=== PATIENT | male | born 1940 | race Caucasian/White ===

== ENCOUNTER 2016-08-06 13:35 | Emergency (ER) | payer OTHER ==
[~2016-08-06] VITALS: Ht 172.7 cm; Wt 72.6 kg
[2016-08-06] MEDS ORDERED: HYDROCODONE/APAP 5/325MG 1 EACH TABLET PO ONE (15:00)
[2016-08-06] MEDS ORDERED: IBUPROFEN 600 MG TABLET PO ONE ×2 (15:00→15:08)
[2016-08-06] MEDS ORDERED: HYDROCODONE/APAP 5/325MG 1 EACH TABLET ONE (15:08)
[2016-08-06 15:36] VITALS: BP 145/79
== END 2016-08-06 15:37 | disposition home or self-care (01) ==
LOC: ER 14:48
DX: S29.012A Strain of muscle and tendon of back wall of thorax, initial encounter (principal); I10 Essential (primary) hypertension; N40.0 Benign prostatic hyperplasia without lower urinary tract symptoms; Z85.9 Personal history of malignant neoplasm, unspecified; X58.XXXA Exposure to other specified factors, initial encounter; Y93.9 Activity, unspecified; Y92.9 Unspecified place or not applicable; Y99.9 Unspecified external cause status
CPT/HCPCS: 99283; A4606; Z7610

== ENCOUNTER 2016-08-08 17:44 | Emergency (ER) | payer OTHER ==
[~2016-08-08] VITALS: Ht 167.6 cm; Wt 68.0 kg
[2016-08-08] MEDS ORDERED: KETOROLAC TROMETHAMINE INJ 30 MG/ML VIAL ONE (18:12)
[2016-08-08] MEDS ORDERED: DIAZEPAM 10 MG TABLET ONE (18:12)
[2016-08-08] MEDS ORDERED: DIAZEPAM 10 MG TABLET PO ONE (18:30)
[2016-08-08] MEDS ORDERED: KETOROLAC TROMETHAMINE INJ 30 MG/ML VIAL IM ONE (18:30)
[2016-08-08 19:14] VITALS: BP 115/66
[2016-08-08] MEDS ORDERED: HYDROCODONE/APAP 5/325MG 1 EACH TABLET ONE (19:55)
[2016-08-08] MEDS ORDERED: HYDROCODONE/APAP 5/325MG 1 EACH TABLET PO ONE (20:00)
== END 2016-08-08 19:59 | disposition home or self-care (01) ==
LOC: ER 17:45
DX: S29.012A Strain of muscle and tendon of back wall of thorax, initial encounter (principal); I10 Essential (primary) hypertension; N40.0 Benign prostatic hyperplasia without lower urinary tract symptoms; G89.29 Other chronic pain; M54.9 Dorsalgia, unspecified; X50.1XXA Overexertion from prolonged static or awkward postures, initial encounter; Y93.89 Activity, other specified; Y92.89 Other specified places as the place of occurrence of the external cause; Y99.8 Other external cause status
CPT/HCPCS: 72070; 96372; 99284; A4606; J1885; Z7610

== ENCOUNTER 2017-04-22 11:26 | Inpatient (IN) | payer OTHER ==
[~2017-04-22] VITALS: Ht 162.6 cm; Wt 74.8 kg
--- NOTE | 2017-04-22 11:40 | NUR ---
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 IV ACCESS ELECTROPLATING LABORER. PT NOTED ANXIOUS. MD AT BS FOR EVAL. VSS. SAFETY AND COMFORT MEASURES PROVIDED. WILL MONITOR.
[2017-04-22] MEDS ORDERED: ONDANSETRON HCL/PF 4 MG/2 ML VIAL ONE (11:48)
[2017-04-22] MEDS ORDERED: ASPIRIN 81 MG TAB.CHEW ONE (11:49)
[2017-04-22] MEDS ORDERED: MORPHINE SULFATE INJ 4 MG/ML DISP.SYRIN ONE (11:49)
[2017-04-22] MEDS ORDERED: MORPHINE SULFATE INJ 2 MG/ML DISP.SYRIN IV ONE (12:00)
[2017-04-22] MEDS ORDERED: ASPIRIN 81 MG TAB.CHEW PO ONE (12:00)
[2017-04-22] MEDS ORDERED: ONDANSETRON HCL/PF 4 MG/2 ML VIAL IVP ONE (12:00)
[2017-04-22] MEDS ORDERED: IV NS 0.9% 500 ML BAG IV ONE (12:00)
--- NOTE | 2017-04-22 12:00 | NUR ---
PT MEDICATED ORDERED. STATE ASSESSED PROPERTIES DIRECTOR AT FOR BLOOD DRAW.
[2017-04-22 12:04] LABS: BASOPHILS % (AUTO) 0.4 % (0.0-2.0); EOSINOPHILS # (AUTO) 0.3 /CMM (0.0-0.7); EOSINOPHILS % (AUTO) 4.4 % (0.0-6.0); HEMATOCRIT 41 % (39-51); HEMOGLOBIN 13.9 g/dL (13.5-17.5); LYMPHOCYTES % (AUTO) 25.5 % (20.0-44.0); MEAN CORPUSCULAR HEMOGLOBIN 32 PG (26.0-33.0); MEAN CORPUSCULAR HGB CONC 34 g/dl (31.0-36.0); MEAN CORPUSCULAR VOLUME 94 fL (80-96); MONOCYTES # (AUTO) 0.4 /CMM (0.1-1.30); MONOCYTES % (AUTO) 5.1 % (2.0-12.0); NEUTROPHILS # (AUTO) 5.1 /CMM (1.8-8.9); NEUTROPHILS % (AUTO) 64.6 % (43.0-81.0); PLATELET COUNT (AUTO) 282 /CMM (150-450); RED BLOOD CELL COUNT(AUTO) 4.42 MIL/uL (4.5-6.0); WHITE BLOOD COUNT (AUTO) 7.8 K/uL (4.3-11.0)
--- NOTE | 2017-04-22 12:11 | NUR ---
CARLOS AT BS.
[2017-04-22 12:21] LABS: CALCIUM, SERUM 9.2 mg/dL (8.5-10.1); CARBON DIOXIDE 23 mmol/L (21-32); CHLORIDE 104 mmol/L (98-107); CREATININE 1.5 mg/dL (0.6-1.3); GLUCOSE 158 mg/dL (74-106); POTASSIUM 4.1 mmol/L (3.5-5.1); SODIUM SERUM 138 mmol/L (136-145); UREA NITROGEN, BLOOD 21 mg/dL (7-18)
[2017-04-22 12:26] LABS: ALANINE AMINOTRANSFERASE 17 U/L (12-78); ALBUMIN 3.4 g/dL (3.4-5.0); ALKALINE PHOSPHATASE 92 U/L (46-116); ASPARTATE AMINOTRANSFERASE 19 U/L (15-37); BILIRUBIN,DIRECT 0.1 mg/dL (0.0-0.2); BILIRUBIN,TOTAL 0.5 mg/dL (0.2-1.0); LIPASE 138 U/L (73-393); TOTAL PROTEIN, SERUM 7.3 g/dL (6.4-8.2)
[2017-04-22 12:27] LABS: TROPONIN I 0.053 ng/mL (0.00-0.056)
[2017-04-22 14:04] LABS: APPEARANCE,URINE Clear (CLEAR); BILIRUBIN,URINE Negative (NEGATIVE); BLOOD, URINE Negative Ery/uL (NEGATIVE); COLOR,URINE Yellow (YELLOW); KETONES,URINE Negative (NEGATIVE); LEUKOCYTE ESTERASE ,URINE Negative (NEGATIVE); NITRITE, URINE Negative (NEGATIVE); PH,URINE 6.5 (5.0-8.0); PROTEIN,URINE Negative (NEGATIVE); UGLUCOSE Negative (NEGATIVE); UROBILINOGEN,URINE 0.2 EU/dL (0.2)
--- NOTE | 2017-04-22 14:10 | NUR ---
REPORT GIVEN TO BARRY HUMMEL FOR TELE ROOM 312-2
--- NOTE | 2017-04-22 14:21 | NUR ---
DR. SALAZAR AT BS.
[2017-04-22] MEDS ORDERED: VERA180T7 PO (14:22)
[2017-04-22] MEDS ORDERED: TAMS0.4C34 PO (14:22)
[2017-04-22] MEDS ORDERED: ASPI-991 PO (14:22)
[2017-04-22] MEDS ORDERED: PROP20TA7 PO (14:22)
[2017-04-22] MEDS ORDERED: DUTA0.5C PO (14:22)
--- NOTE | 2017-04-22 14:50 | NUR ---
CYLINDER PRESS OPERATOR APPRENTICE ADMITTING NOTE PATIENT ARRIVED TO THE UNIT VIA GURNEY ACCOMPANIED BY ER NURSE, SALES REPRESENTATIVE GAS SERVICE AND THE SON JULITO. PATIENT IS AMBULATORY, A/O X3, FORGETFUL OF SPECIFIC DATES, TAJIK SPEAKING, BUT UNDERSTANDS SIMPLE CONTENT IN [place]. REPORTS MILD ACHE IN CHEST REGION. ASSISTED TO BED SAFELY. BED IS LOCKED IN LOWEST POSITION, SIDE RAILS UP X2. PATIENT IN HIGH CASTANEDA'S POSITION. CALL LIGHT WITHIN REACH. PATIENT EDUCATED TO USE THE CALL LIGHT WHEN CALLING FOR ASSISTANCE VIA TEACH BACK METHOD AND VERBALIZED FULL UNDERSTANDING OF THE TEACHING. DR. SALAZAR IS AWARE PATIENT IS ON THE UNIT. AWAITING FOR THE ORDERS.
[2017-04-22 14:55] VITALS: BP 142/66
[2017-04-22] MEDS ORDERED: MORPHINE SULFATE INJ 2 MG/ML DISP.SYRIN IV PRN (15:30)
[2017-04-22] MEDS ORDERED: NITROGLYCERIN 0.4 MG/TAB BOTTLE SL PRN (15:30)
[2017-04-22] MEDS ORDERED: ONDANSETRON HCL/PF 4 MG/2 ML VIAL IVP PRN (15:30)
--- NOTE | 2017-04-22 15:51 | NUR ---
LEGAL EXECUTIVE ASSISTANT NOTE DAISY FROM [facility] CALLED REPORTED CRITICAL LAB VALUE OF TROPONIN 1.182. WILL INFORM THE MD.
--- NOTE | 2017-04-22 15:59 | NUR ---
SALES ENGAGEMENT MANAGER NOTE TELEPHONE REPORT GIVEN TO DR. SALAZAR ON CRITICAL LAB VALUE (TROPONIN 1.182). TELEPHONE ORDER OBTAINED TO START THE PATIENT ON HEPARIN DRIP
[2017-04-22 16:00] VITALS: BP 146/91
[2017-04-22] MEDS ORDERED: FEE PK DOSING 1 MIN EA MC ONE (16:49)
[2017-04-22] MEDS ORDERED: METOPROLOL TARTRATE 25 MG TABLET PO SCH (17:00)
[2017-04-22] MEDS ORDERED: HEPARIN SODIUM, PORCINE 5000 UNITS/1 ML VIAL SQ ONE (17:30)
[2017-04-22] MEDS: ACETAMINOPHEN 325 MG TABLET PO PRN (17:44)
[2017-04-22 18:00] VITALS: BP 166/84
[2017-04-22] MEDS ORDERED: IV NS 0.9% 1,000 ML BAG IV PRN (18:00)
--- NOTE | 2017-04-22 18:00 | NUR ---
TOWBOAT OPERATOR NOTE PATIENT IS REFUSING THE MEDICATIONS. ONLY AGREED TO TAKE PRESCRIBED TYLENOL FOR REPORTED FLANK PAIN.
--- NOTE | 2017-04-22 18:10 | NUR ---
CAMPUS COORDINATOR NOTE PATIENT IS REFUSING BLOOD DRAW. RN SPOKE TO THE PATIENT EXPLAINED THE NEED FOR BLOOD DRAW AND ITS PURPOSE. PATIENT AGREED TO BLOOD DRAW STATED "THIS IS THE LAST ONE I AM AGREEING TO".
--- NOTE | 2017-04-22 18:25 | NUR ---
APPLICATION CONSULTANT NOTE patient is refusing Heparin. Dr Tarango notified. per call the son Mina and explain the situation. Called the son's cell phone to discuss. no answer. Will call back.
--- NOTE | 2017-04-22 18:28 | NUR ---
GRANULATING BLENDER NOTE SPOKE TO PATIENT'S SON JULITO. EXPLAINED THE IMPORTANCE OF HEPARIN ADMINISTRATION. ASKED THE SON TO SPEAK TO THE FATHER. THE SON STATED HE WILL COME TO THE HOSPITAL TO SPEAK TO THE PATIENT. PATIENT IS STILL REFUSING THE HEPARIN ADMINISTRATION.
[2017-04-22 18:35] LABS: INR 0.93 (0.87-1.13); PROTHROMBIN TIME 9.7 SECS (9.5-12.7)
--- NOTE | 2017-04-22 18:50 | NUR ---
VISUAL EFFECTS EDITOR NOTE PATIENT DISLODGED THE IV. IV CATHETER REMOVED, OCCLUSIVE DRESSING APPLIED. TWO NEW IV CATHETER INSERTED. PATIENT TOLERATED THE PROCEDURE WELL.
--- NOTE | 2017-04-22 19:01 | NUR ---
CARBON PAPER MACHINE OPERATOR NOTE PATIENT'S SON AT THE BEDSIDE. PATIENT AGREED TO HEPARIN
--- NOTE | 2017-04-22 19:18 | NUR ---
CRYPTOLOGIC LINGUIST NOTE HEPARIN ORDER IN EMAR IS PLACED SUBQ INSTEAD OF IV. CALLED PHARMACY TO VERIFY. PHARMACY IS CLOSED. CALLING THE PHYSICIAN TO ASK IF GIVING HEPATIN SUB Q IS ACCEPTABLE.
--- NOTE | 2017-04-22 19:30 | NUR ---
TAFFY CANDY MAKER NOTE RECEIVED PATIENT AWAKE AND ALERT IN BED. PATIENT'S SON AT THE BEDSIDE. PATIENT IS CALM AN COOPERATIVE. NO DISTRESS NOTED. PATIENT DENIES ANY PAIN. BED IS LOCKED, IN LOWEST POSITION, SIDE RAILS UP X2, BED ALARM ON. RIGHT FOREARM IV RUNNING HEPARIN AT 22 ML/HR. LEFT WRIST IC INFUSING NORMAL SALINE AT 75ML/HR. CALL LIGHT WITHIN REACH.
--- NOTE | 2017-04-22 19:35 | NUR ---
COMMUNICATIONS STRATEGIST NOTE SPOKE TO DR. BAILEY THE DIGITAL DEVELOPER MD. PER DR. BAILEY DO NOT ADMINISTER THE SUBQ BOLUS. SKIP THE BOLUS AND INITIATE THE HEPARIN DRIP.
[2017-04-22] MEDS: IV NS 0.9% 1,000 ML IV PRN (19:51)
[2017-04-22 20:00] VITALS: BP 166/84
[2017-04-22] MEDS: HEPARIN INFUSION/D5W 500 ML IV PRN (20:00)
--- NOTE | 2017-04-22 20:00 | NUR ---
PILOT CONTROL OPERATOR CLOSING NOTE REPORT GIVEN TO JOAN WOMEN'S SOCCER COACH RN. PATIENT FINALLY AGREED TO HEPARIN AND IV SALINE ADMINISTRATION. PATIENT'S SON AT THE BEDSIDE. PATIENT IS CURRENTLY CALM AN COOPERATIVE. IN BED, BED IS LOCKED, IN LOWEST POSITION, SIDE RAILS UP X2, BED ALARM ON. RIGHT FOREARM IV RUNNING HEPARIN AT 22 ML/HR. LEFT WRIST IC INFUSING NORMAL SALINE AT 75ML/HR. PATIENT DENIES PAIN DISCOMFORT AT THIS TIME. ALL NEEDS ARE MET. CALL LIGHT WITHIN REACH. ENDORSED TO THE WOMEN'S SOCCER COACH NURSE FOR CAITLIN.
[2017-04-22 22:00] VITALS: BP 166/84
[2017-04-22] MEDS ORDERED: LORAZEPAM INJ 2 MG/ML VIAL ONE (22:17)
[2017-04-22] MEDS: LORAZEPAM INJ 2 MG/ML VIAL IV PRN (22:23)
--- NOTE | 2017-04-22 22:30 | NUR ---
SYNTHETIC FILAMENT EXTRUDER NOTE PATIENT AGITATED, AND ATTEMPTING TO PULL OUT IV'S. VERBALIZING THAT HE IS LEAVING THE HOSPITAL. SON AT BEDSIDE. ATTEMPTING TO CALM HIM DOWN. CONTINUES TO BE AGITATED. DR. BAILEY NOTIFIED. NEW ORDERS RECEIVED FOR LORAZEPAM 1MG Q6H PRN PO FOR AGITATION. ORDER CARRIED OUT. MEDICATION ADMINISTERED ORDERED. WILL CONTINUE TO MONITOR.
--- NOTE | 2017-04-22 23:15 | NUR ---
BOBJ DEVELOPER NOTE TROPONIN 2.590. DR. BAILEY NOTIFIED. NO NEW ORDERS GIVEN. WILL CONTINUE TO MONITOR.
--- NOTE | 2017-04-22 23:30 | NUR ---
REGISTRATION REP NOTE PATIENT SLEEPING AT THIS TIME. VITAL SIGNS STABLE. SON AT BEDSIDE. WILL CONTINUE TO MONITOR.
[2017-04-23] VITALS (12 sets, daily range): BP systolic 96–171; BP diastolic 52–107
--- NOTE | 2017-04-23 02:55 | NUR ---
OPTICAL GOODS DRILL OPERATOR NOTE PTT LEVEL 42. INCREASED HEPARIN DRIP TO 1,275 UNITS/HR, 26ML/HR PER PROTOCOL. REPEAT PTT @ 0800.
[2017-04-23] MEDS ORDERED: LORAZEPAM INJ 2 MG/ML VIAL ONE (04:24)
[2017-04-23] MEDS: LORAZEPAM INJ 2 MG/ML VIAL IV PRN ×2 (04:27→15:43)
--- NOTE | 2017-04-23 06:22 | NUR ---
SENIOR PARTNER NOTE PATIENT STABLE. TELE SR 80. SLEEPING AT THIS TIME. NO DISCOMFORT NOTED. SON AT BEDSIDE. HEPARIN DRIP RUNNING @26ML/HR. ALL NEEDS MET AND ATTENDED TO. WILL ENDORSE TO DAY SHIFT FOR CAITLIN.
[2017-04-23 07:49] LABS: BASOPHILS # (AUTO) 0.1 /CMM (0.0-0.2); BASOPHILS % (AUTO) 0.7 % (0.0-2.0); EOSINOPHILS # (AUTO) 0.5 /CMM (0.0-0.7); EOSINOPHILS % (AUTO) 5.3 % (0.0-6.0); HEMATOCRIT 39 % (39-51); LYMPHOCYTES # (AUTO) 1.9 /CMM (0.8-4.8); LYMPHOCYTES % (AUTO) 21.7 % (20.0-44.0); MEAN CORPUSCULAR HEMOGLOBIN 32 PG (26.0-33.0); MEAN CORPUSCULAR HGB CONC 33 g/dl (31.0-36.0); MEAN CORPUSCULAR VOLUME 96 fL (80-96); MONOCYTES # (AUTO) 0.6 /CMM (0.1-1.30); MONOCYTES % (AUTO) 7.3 % (2.0-12.0); NEUTROPHILS # (AUTO) 5.6 /CMM (1.8-8.9); PLATELET COUNT (AUTO) 244 /CMM (150-450); RDW COEFFICIENT OF VARIATION 14.4 (11.5-15.0); WHITE BLOOD COUNT (AUTO) 8.7 K/uL (4.3-11.0)
--- NOTE | 2017-04-23 08:00 | NUR ---
RN NOTES RECEIVED PATIENT IN THE ROOM, A/O X2/3, CONFUSED SAME TIME, PATIENT NEED REDIRECTION, V/S TAKEN, PATIENT ON IV LINE LEFT AN RIGHT FOREARM, INTACT, INFUSING HEPARIN 26ML/HR, NEEDS ATTENDED AN ANTICIPATED, PATIENT NPO AT THIS TIME, CALL LIGHT WITH IN TO REACH, SAFETY PRECAUTION MAINTAINED ALL THE TIME. CONTINUED MONITORING. BED ALARM ON.
[2017-04-23 08:09] LABS: CALCIUM, SERUM 8.4 mg/dL (8.5-10.1); CARBON DIOXIDE 28 mmol/L (21-32); CHLORIDE 107 mmol/L (98-107); CREATININE 1.3 mg/dL (0.6-1.3); GLUCOSE 108 mg/dL (74-106); MAGNESIUM 2.2 mg/dL (1.8-2.4); PHOSPHORUS 3.2 mg/dL (2.5-4.9); POTASSIUM 3.7 mmol/L (3.5-5.1); SODIUM SERUM 142 mmol/L (136-145); UREA NITROGEN, BLOOD 12 mg/dL (7-18)
[2017-04-23 08:10] LABS: CHOLESTEROL 240 mg/dL (<200); HDL CHOLESTEROL 53 mg/dL (40-60); LDL 169 mg/dL (0-99); TRIGLYCERIDES 70 mg/dL (30-150)
[2017-04-23 08:33] LABS: TROPONIN I 1.52 ng/mL (0.00-0.056)
[2017-04-23 08:37] LABS: THYROID STIMULATING HORMONE 3.193 uIU/mL (0.358-3.74)
[2017-04-23] MEDS: IV NS 0.9% 1,000 ML IV PRN ×2 (08:53→21:09)
--- NOTE | 2017-04-23 09:19 | NUR ---
RN NOTES PATIENT IN THE ROOM, BEDREST, STILL NPO, ECHOCARDIOGRAM DONE BY US BANK OFFICER, EKG DONE . PATIENT CONFUSED, NEED REDIRECTION, SON NEXT TO THE BED, INFUSING IV ON RIGHT FOREARM, INTACT, CALL LIGHT WITHIN TO REACH, SAFETY PRECAUTION MAINTAINED ALL THE TIME. CONTINUED MONITORING.
[2017-04-23] MEDS: ATORVASTATIN 40 MG TABLET PO SCH (09:36)
[2017-04-23] MEDS: ASPIRIN 81 MG TAB.CHEW PO SCH (09:36)
[2017-04-23] MEDS: HEPARIN INFUSION/D5W 500 ML IV PRN ×3 (11:13→21:54)
--- NOTE | 2017-04-23 11:23 | NUR ---
RN NOTES PATIENT RESTING IN THE BED AT THIS TIME, NO ACUTE/ NO RESPIRATORY/ NO C/O PAIN AT THIS TIME, INFUSING HEPARIN RATE 25.5ML/HR ON RIGHT FOREARM, INTACT, SON NEXT TO THE BED, CALL LIGHT WITHIN TO REACH, SAFETY PRECAUTION MAINTAINED ALL THE TIME.
[2017-04-23] MEDS: METOPROLOL TARTRATE 25 MG TABLET PO SCH ×3 (12:27→23:10)
[2017-04-23] MEDS ORDERED: METOPROLOL TARTRATE INJ 5 MG/5 ML AMPUL ONE ×2 (12:33→13:14)
[2017-04-23] MEDS ORDERED: NITROGLYCERIN 0.4 MG/TAB BOTTLE ONE (12:34)
--- NOTE | 2017-04-23 12:46 | NUR ---
PT FOR CT-A CORONARY FOR NSTEMI. CONSENT SIGNED BY PT. VANDANA 1.3
[2017-04-23] MEDS ORDERED: IOHEXOL-350 100 ML VIAL IV ONE (12:54)
[2017-04-23] MEDS ORDERED: CT SWABBABLE VALVE TRANS SET 1 EA INFUS.SET MC ONE (12:54)
--- NOTE | 2017-04-23 12:59 | NUR ---
RN NOTES PATIENT LANDSCAPE HORTICULTURE INSTRUCTOR AT THIS TIME FOR CT ANGIO HEART 3D PROCEDURE.
--- NOTE | 2017-04-23 13:09 | NUR ---
FIRST DOSE OF METOPROLOL 5 MG SIVP ADMINSITERED.
--- NOTE | 2017-04-23 13:09 | NUR ---
HR 69.
--- NOTE | 2017-04-23 13:17 | NUR ---
HR 67.
--- NOTE | 2017-04-23 13:22 | NUR ---
METOPROLOL 5 MG SIVP ADMINISTERED. HR 67
--- NOTE | 2017-04-23 13:27 | NUR ---
SECOND DOSE METOPROLOL 5 MG SIVP FOR HR 67
--- NOTE | 2017-04-23 13:29 | NUR ---
NITROGLYCERIN 0.4 MG SL ADMINISTERED.
--- NOTE | 2017-04-23 13:34 | NUR ---
PT NOT ABLE TO STAY STILL. NOW PT REQUESTING FOR A URINAL.
--- NOTE | 2017-04-23 13:40 | NUR ---
PROCEDURE COMPLETED. UNEVENTFUL. VSS. NO MEDICAL COMPLAINT.S
--- NOTE | 2017-04-23 15:43 | NUR ---
RN NOTES PATENT CONFUSED TA THIS TIME, ANXIOUS , IRRITABLE, ADMINISTERED ATIVAN 2MG/ML IV PUSH, V/S TAKEN, P-64, R-18, O2 -96 ROM AIR, BP-128/67, T-97.8, . IV HEPARIN 25.5 ML/HR, RUNNING ON RIGHT FOREARM, INTACT, CALL LIGHT WITHIN TO REACH, SAFETY PRECAUTION MAINTAINED ALL THE TIME, SON NEXT TO THE BED, SAFETY PRECAUTION MAINTAINED ALL THE TIME.
[2017-04-23] MEDS: ACETAMINOPHEN 325 MG TABLET PO PRN (17:22)
--- NOTE | 2017-04-23 17:22 | NUR ---
RN NOTES/ ADMINISTERED TYLENOL 650 MG PO PRN FOR GENERALIZED PAIN /10, V/S STABLE, PT ANXIOUS, CONFUSED, PACING AROUND, HARD TO FOLLOW DIRECTION, SON NEXT TO THE BED, SAFETY PRECAUTION MAINTAINED ALL THE TIME.
--- NOTE | 2017-04-23 19:20 | NUR ---
RN NOTES PATIENT VERY CONFUSED, HARD TO FOLLOW DIRECTION, 1:1 SITTER NEXT TO THE BED FOR SAFETY, TELE MONITOR ON, MED COMPLIANT, IV RIGHT FOREARM INFUSING HEPARIN 25.5 ML/HR, AND NS 75 ML/HR, INTACT, CALL LIGHT WITHIN TO REACH, SAFETY PRECAUTION MAINTAINED ALL THE TIME. ENDORSED ONCOMING NURSE FOR CONTINUATION OF CARE. SON ALSO NEXT TO THE BED.
--- NOTE | 2017-04-23 19:45 | NUR ---
MS RN OPENING NOTES PATIENT RESTING IN BED A/O X 1, NO ACUTE DISTRESS NOTED. BREATHING EVEN AND UNLABORED, NO SOB NOTED. SAFETY MEASURES IN PLACE, BED LOCKED AND IN LOWEST POSITION, CALL LIGHT IN REACH. WILL CONTINUE TO MONITOR.
--- NOTE | 2017-04-23 21:30 | NUR ---
HEPARIN DRIP ADJUSTMENT PTT LEVEL 43, STARTED TO INCREASED HEPARIN DRIP TO 1425UNITS/HR, 28.5 MLS/HR AT 2130 PER PROTOCOL, REPEAT PTT AT 0330 04/24/17
--- NOTE | 2017-04-23 23:35 | NUR ---
HEDIS NURSE NOTES PLACED A CALL TO HOSPITALIST SPOKE TO TENANT SELECTOR DR. BAILEY PER SON REQUEST IF HE COULD GET AN ORDER FROM THE DOCTOR OF AMBIEN JUST IN CASE HE NEEDED IT BECAUSE PER SON HE DOESN'T LIKE ATIVAN TO BE GIVEN, FF MED RECON. PER DR. BAILEY OK TO GIVE AMBIEN 5 MG PO HS PRN NEEDED NOTED AND CARRIED OUT.
--- NOTE | 2017-04-23 23:40 | NUR ---
TRACTOR EXPERT NOTES PT IS ASLEEP RIGHT NOW NO NEED FOR VISHAL SRIVASTAVA SON APPRECIATIVE TO NURSES
[2017-04-24] VITALS: BP 115/60
[2017-04-24] MEDS ORDERED: ZOLPIDEM TARTRATE 5 MG TABLET PO PRN
[2017-04-24] MEDS ORDERED: ZOLPIDEM TARTRATE 5 MG TABLET ONE (02:31)
--- NOTE | 2017-04-24 02:33 | NUR ---
WORKFORCE MANAGEMENT ANALYST NOTES ZOLPIDEM 5 MG PO GIVEN TO THE PT CANNOT SLEEP AT THIS TIME PT KEEP ON WALKING TO THE HALLWAY WITH SITTER SON (JULITO) AT THE SIDE.
[2017-04-24 03:49] LABS: BASOPHILS % (AUTO) 0.5 % (0.0-2.0); EOSINOPHILS # (AUTO) 0.5 /CMM (0.0-0.7); EOSINOPHILS % (AUTO) 5.9 % (0.0-6.0); HEMATOCRIT 39 % (39-51); LYMPHOCYTES # (AUTO) 1.8 /CMM (0.8-4.8); LYMPHOCYTES % (AUTO) 20.5 % (20.0-44.0); MEAN CORPUSCULAR HEMOGLOBIN 32 PG (26.0-33.0); MEAN CORPUSCULAR HGB CONC 33 g/dl (31.0-36.0); MEAN CORPUSCULAR VOLUME 95 fL (80-96); MONOCYTES # (AUTO) 0.8 /CMM (0.1-1.30); MONOCYTES % (AUTO) 8.6 % (2.0-12.0); NEUTROPHILS # (AUTO) 5.6 /CMM (1.8-8.9); NEUTROPHILS % (AUTO) 64.5 % (43.0-81.0); PLATELET COUNT (AUTO) 254 /CMM (150-450); RDW COEFFICIENT OF VARIATION 14.3 (11.5-15.0); RED BLOOD CELL COUNT(AUTO) 4.11 MIL/uL (4.5-6.0); WHITE BLOOD COUNT (AUTO) 8.7 K/uL (4.3-11.0)
[2017-04-24 04:00] VITALS: BP 158/91
[2017-04-24 04:04] LABS: ALANINE AMINOTRANSFERASE 21 U/L (12-78); ALBUMIN 3.1 g/dL (3.4-5.0); ALKALINE PHOSPHATASE 77 U/L (46-116); ASPARTATE AMINOTRANSFERASE 21 U/L (15-37); BILIRUBIN,TOTAL 0.5 mg/dL (0.2-1.0); CALCIUM, SERUM 8.9 mg/dL (8.5-10.1); CARBON DIOXIDE 30 mmol/L (21-32); CHLORIDE 108 mmol/L (98-107); CREATININE 1.2 mg/dL (0.6-1.3); GLUCOSE 106 mg/dL (74-106); MAGNESIUM 2.1 mg/dL (1.8-2.4); PHOSPHORUS 3.5 mg/dL (2.5-4.9); POTASSIUM 3.7 mmol/L (3.5-5.1); SODIUM SERUM 143 mmol/L (136-145); TOTAL PROTEIN, SERUM 6.8 g/dL (6.4-8.2); UREA NITROGEN, BLOOD 12 mg/dL (7-18)
[2017-04-24 04:14] LABS: TROPONIN I 0.456 ng/mL (0.00-0.056)
[2017-04-24] MEDS: HEPARIN INFUSION/D5W 500 ML IV PRN (04:24)
--- NOTE | 2017-04-24 04:24 | NUR ---
HEPARIN DRIP PTT LEVEL AT 59 NO CHANGES PER PROTOCOL REMAINS 1425 UNITS/HR, 28.5 MLS/HR
[2017-04-24] MEDS: METOPROLOL TARTRATE 25 MG TABLET PO SCH ×2 (05:26→13:29)
--- NOTE | 2017-04-24 06:27 | NUR ---
PRECISION FARMING COORDINATOR CLOSING NOTES PT ON HALLWAY WALKING WITH 1:1 SITTER, RE ORIENTED THE PT, PT STATES THAT HE IS IN HIS APARTMENT. TOLERATING ROOM AIR 02 SAT AT 100% IV HYDRATION NS ONGOING AT 75 CC, IV SITE NO S/S OF INFILTRATED PATENT AND FLUSHED, ON HEPARIN DRIP WITH NO S/S OF BLEEDING NOTED. PATIENT DENIES PAIN AT THIS TIME.RESPIRATIONS EVEN AND UNLABORED., NO S/S OF ACUTE DISTRESS, NO SOB, NO COUGH, NO CONGESTION, SKIN WARM AND DRY TO TOUCH, AFEBRILE, ALL NURSING CARE RENDERED, NEEDS ATTENDED AND ANTICIPATED, KEPT CLEAN AND DRY AND COMFORTABLE, GOOD SKIN CARE PROVIDED. ALL DUE MEDS WAS GIVEN FREQUENT VISUAL CHECK DONE FOR SAFETY EVERY 2 HOURS. SAFE HAZARD FREE ENVIRONMENT PROVIDED. CALL LIGHT WITHIN EASY TO REACH, ON LOW BED AT ALL TIMES TO ENSURE SAFETY, WILL ENDORSE TO THE NEXT SHIFT CONTINUE PLAN OF CARE.
--- NOTE | 2017-04-24 06:56 | NUR ---
MIDDLE SCHOOL ENGLISH TEACHER NOTES REPORTED TO DR. BAILEY LATEST TROPONIN WITH NO NEW ORDERS
[2017-04-24 08:00] VITALS: BP 153/91
--- NOTE | 2017-04-24 08:40 | NUR ---
tele [employer] combination teacher: notes tele removed as ordered. dr. sanford at bedside and talking to son and answered all questions and updated plan of care. dr. sanford aware of bluish discoloration to bilateral palms and will consult neurologist to see pt. son verbalized understanding. primary nurse made aware.
--- NOTE | 2017-04-24 08:45 | NUR ---
when dr. sanford here ordered heparin be dc,d.machine turned off. no other blood thinners ordered.
--- NOTE | 2017-04-24 08:58 | NUR ---
m/s commercial review appraiser: notes son here and asked if his immunizations are up to date, stated, "probably not, but he will not have them if you ask him."
[2017-04-24] MEDS ORDERED: VALSARTAN 80 MG TABLET PO SCH (09:00)
--- NOTE | 2017-04-24 09:30 | NUR ---
dr. cutler in to see pt.
[2017-04-24] MEDS: ATORVASTATIN 40 MG TABLET PO SCH (09:50)
[2017-04-24] MEDS: ASPIRIN 81 MG TAB.CHEW PO SCH (09:50)
[2017-04-24] MEDS ORDERED: QUETIAPINE FUMARATE 25 MG TABLET PO SCH (10:30)
[2017-04-24] MEDS: ACETAMINOPHEN 325 MG TABLET PO PRN (10:36)
--- NOTE | 2017-04-24 10:36 | NUR ---
med. for hand pain with tylenol 650 mg. po.
--- NOTE | 2017-04-24 11:30 | NUR ---
dr. harrison and dr. avila in to see pt.
--- NOTE | 2017-04-24 12:30 | NUR ---
son present and plans for dc today.photo take of discoloration justa. hands.
[2017-04-24 12:48] VITALS: BP 124/74
[2017-04-24 13:29] VITALS: BP 124/74
--- NOTE | 2017-04-24 14:30 | NUR ---
dc instructions given to son along with rxs.review of home meds with son.taken to lobby via w/c acc. by trey.
== END 2017-04-24 14:30 | disposition home or self-care (01) | DRG 280 ==
LOC: ER 11:28 → TELE 14:21 → MED 04-24 09:27
PROVIDERS: ADMIT Internal Medicine; ATTEND Internal Medicine
DX: I21.9 Acute myocardial infarction, unspecified (principal); N17.0 Acute kidney failure with tubular necrosis; F05 Delirium due to known physiological condition; I71.4 Abdominal aortic aneurysm, without rupture; Z87.891 Personal history of nicotine dependence; R73.9 Hyperglycemia, unspecified; I25.10 Atherosclerotic heart disease of native coronary artery without angina pectoris; N18.9 Chronic kidney disease, unspecified; I12.9 Hypertensive chronic kidney disease with stage 1 through stage 4 chronic kidney disease, or unspecified chronic kidney disease; E78.5 Hyperlipidemia, unspecified; F03.90 Unspecified dementia, unspecified severity, without behavioral disturbance, psychotic disturbance, mood disturbance, and anxiety
CPT/HCPCS: 36415; 71010-TC; 75574; 80048-TC; 80053-TC; 80061-TC; 80076-TC; 81000-TC; 82306; 83690-TC; 83735-TC; 84100-TC; 84439-TC; 84443-TC; 84484-TC; 85025-TC; 85610-TC; 85730-TC; 87081-TC; 93307-TC; A4606; J1644; J2060; J2270; J2405; J3490; J7030; J7040; Q9967; Z7610

== ENCOUNTER 2017-06-13 15:08 | Emergency (ER) | payer OTHER ==
[~2017-06-13 15:08] MED LIST: ASPI-991 PO; DUTA0.5C PO; TAMS0.4C34 PO
--- NOTE | 2017-06-13 15:15 | NUR ---
CALLED FOR TRIAGE, NO RESPONSE, PT PHYSICALLY NOT IN WR
--- NOTE | 2017-06-13 15:25 | NUR ---
CALLED FOR TRIAGE, NO RESPONSE, PT PHYSICALLY NOT IN WR
== END 2017-06-13 15:31 | disposition home or self-care (01) ==
LOC: ER 15:09
DX: Z53.21 Procedure and treatment not carried out due to patient leaving prior to being seen by health care provider (principal)